=== PATIENT | male | born 1960 | race Caucasian/White ===

== ENCOUNTER 2020-05-14 08:59 | Day surgery (SDC) | payer BC ==
[~2020-05-14 08:59] MED LIST: Midazolam 1 MG/ML 2 ML SDV ONE; Propofol 200 MG/20 ML SDV ONE; Sodium Chloride 0.9% 10 ML Syringe FLUSH PRN
[2020-05-14] MEDS: Lactated Ringers 1,000 ML IV SCH (09:41)
--- NOTE | 2020-05-14 10:09 | PCM.HPR ---
H & P Addendum review - H & P Addendum Review Date of Original H & P: 04/16/20 Date Reviewed: 05/14/20 Time Reviewed: 10:09 Patient was Examined: No Changes
[2020-05-14] MEDS ORDERED: Propofol 200 MG/20 ML SDV ONE ×2 (10:12)
[2020-05-14] MEDS ORDERED: Midazolam 1 MG/ML 2 ML SDV ONE (10:12)
--- NOTE | 2020-05-14 10:43 | PCM.OPNOTE ---
- General Post-Op/Procedure Note Date of Surgery/Procedure: 05/14/20 Operative Procedure(s): Colonoscopy Findings: Sig tics Pre Op Diagnosis: Hx Polyps Post-Op Diagnosis: Same Anesthesia Technique: MAC Primary Surgeon: Ian Calle Anesthesia Provider: Lorrie Sommers Complications: None Condition: Good
--- NOTE | 2020-05-14 12:41 | OR ---
Date of Procedure: 05/14/2020 PREOPERATIVE DIAGNOSIS: History of colon polyps. POSTOPERATIVE DIAGNOSIS: Sigmoid diverticulosis. PROCEDURE: Colonoscopy. ANESTHESIA: IV sedation. PROCEDURE IN DETAIL: The patient was brought to the procedure room where he was placed on his left side and IV sedation was administered. Digital rectal exam was performed, which was normal. Colonoscope was inserted and advanced to the level of the cecum without difficulty. Cecal position was confirmed by identifying the appendiceal lumen and ileocecal valve. Prep was good and surfaces were well visualized. Upon withdrawing the scope, the ascending, transverse, and descending colon were normal in appearance. Sigmoid colon had a few diverticula present. Rectum was normal and retroflexion was normal. Air was removed and the scope withdrawn. Patient tolerated the procedure well and returned to recovery in stable condition. Recommend surveillance colonoscopy again in 5 years. KINGSTON HOLDEN MD /[id number]
[2020-05-14 14:23] VITALS: BP 110/93; PULSE 50
== END 2020-05-14 12:15 | disposition home or self-care (01) ==
LOC: LL.SDS 08:59
PROVIDERS: ATTEND Surgery
DX: Z12.11 Encounter for screening for malignant neoplasm of colon (principal); K57.30 Diverticulosis of large intestine without perforation or abscess without bleeding; M79.672 Pain in left foot; M79.671 Pain in right foot; G89.29 Other chronic pain; M54.2 Cervicalgia; Z86.010 Personal history of colon polyps; Z98.890 Other specified postprocedural states
CPT/HCPCS: J2250; J2704; J7120

== ENCOUNTER 2021-10-07 07:52 | Day surgery (SDC) | payer BC ==
[~2021-10-07 07:52] MED LIST changes: -Midazolam 1 MG/ML 2 ML SDV ONE; -Propofol 200 MG/20 ML SDV ONE
[2021-10-07] MEDS ORDERED: Midazolam 1 MG/ML 2 ML SDV ONE ×2 (08:31→09:03)
[2021-10-07] MEDS ORDERED: fentaNYL 250 MCG/5 ML SDV ONE ×2 (08:31→09:03)
[2021-10-07] MEDS ORDERED: Propofol 200 MG/20 ML SDV ONE ×2 (08:31→09:03)
[2021-10-07 08:35] LABS: ANION GAP 12.5 meq/L (7-15); CHLORIDE,CL 107 mmol/L (98-107); SODIUM,NA 143 mmol/L (136-145)
[2021-10-07] MEDS: Lactated Ringers 1,000 ML IV SCH (08:41)
[2021-10-07] MEDS: Albuterol 0.083% 2.5 MG/3 ML Neb Soln NEB ONE ×2 (08:54→10:55)
[2021-10-07] MEDS ORDERED: Neostigmine Methylsulfate 10 MG/10 ML MDV ONE (09:03)
[2021-10-07] MEDS ORDERED: ceFAZolin 1 GM Vial ONE (09:03)
[2021-10-07] MEDS ORDERED: Dexamethasone 10 MG/ML SDV ONE (09:03)
[2021-10-07] MEDS ORDERED: Succinylcholine 200 MG/10 ML MDV ONE (09:03)
[2021-10-07] MEDS ORDERED: ePHEDrine 50 MG/ML SDV ONE (09:03)
[2021-10-07] MEDS ORDERED: Ketorolac 30 MG/ML SDV ONE (09:03)
[2021-10-07] MEDS ORDERED: Ondansetron 4 MG/2 ML SDV ONE (09:03)
[2021-10-07] MEDS ORDERED: Glycopyrrolate 0.2 MG/ML SDV ONE (09:03)
[2021-10-07] MEDS ORDERED: Rocuronium 100 MG/10 ML MDV ONE (09:03)
--- NOTE | 2021-10-07 09:06 | PCM.PN ---
- General Info Date of Service: 10/07/21 - Review of Systems Systems Review Comment:: 61-year-old male here for cholecystectomy because of a mass in his gallbladder as well as gallbladder symptoms. Also requests removal of 3 skin tags. The skin tags are marked and procedure reviewed with the patient. Patient is medically stable to proceed today. I reviewed with him the proposed operative procedure and expectations as well as instructions. His recent history and physical is reviewed and no significant changes are noted. He agrees to proceed. - Patient Data Vitals - Most Recent: Last Vital Signs Temp 98.2 F 10/07/21 08:57 Pulse 61 10/07/21 08:57 Resp 20 10/07/21 08:57 BP 135/86 10/07/21 08:57 Pulse Ox 99 10/07/21 08:57 Weight - Most Recent: 90.265 kg Lab Results Last 24 Hours: Laboratory Results - last 24 hr 10/07/21 10/07/21 Range/Units 08:11 08:11 WBC 6.6 (4.0-10.2) K/uL RBC 5.67 H (4.33-5.41) M/uL Hgb 16.1 (13.1-16.8) g/dL Hct 46.8 (39.0-49.0) % MCV 82.5 L (84.0-98.0) fL MCH 28.4 (28.2-33.3) pg MCHC 34.4 (31.7-36.0) g/dL RDW 13.3 (11.2-14.1) % Plt Count 239 (150-350) K/uL Neut % (Auto) 61.8 (45.0-80.0) % Lymph % (Auto) 26.8 (10.0-50.0) % Gila % (Auto) 8.5 (2.0-14.0) % Eos % (Auto) 2.6 (0.0-5.0) % Baso % (Auto) 0.3 (0.0-2.0) % Neut # (Auto) 4.06 (1.40-7.00) K/uL Lymph # (Auto) 1.76 (0.50-3.50) K/uL Gila # (Auto) 0.56 (0.00-1.00) K/uL Eos # (Auto) 0.17 (0.00-0.50) K/uL Baso # (Auto) 0.02 (0.00-0.20) K/uL Sodium 143 (136-145) mmol/L Potassium 4.1 (3.5-5.1) mmol/L Chloride 107 (98-107) mmol/L Carbon Dioxide 23.5 (21.0-32.0) mmol/L Anion Gap 12.5 (7-15) meq/L BUN 27 H (7-18) mg/dL Creatinine 0.96 (0.51-1.17) mg/dL Est Cr Clr Drug Dosing 78.18 mL/min Estimated GFR (MDRD) > 60 mL/min Glucose 112 H (70-99) mg/dL Calcium 8.5 (8.5-10.1) mg/dL Med Orders - Current: Current Medications Lactated Ringer's (Ringers, Lactated) 1,000 mls @ 125 mls/hr IV ASDIRECTED CHRISTIN Last Admin: 10/07/21 08:41 Dose: 125 mls/hr Documented by: Sodium Chloride (Sodium Chloride 0.9% 10 Ml Syringe) 10 ml FLUSH ASDIRECTED PRN PRN Reason: Keep Vein Open Discontinued Medications Albuterol (Albuterol 0.083% 2.5 Mg/3 Ml Neb Soln) 2.5 mg NEB ONETIME ONE Stop: 10/07/21 08:47 Last Admin: 10/07/21 08:54 Dose: 2.5 mg Documented by: Fentanyl (Fentanyl 250 Mcg/5 Ml Sdv) Confirm Administered Dose 250 mcg .ROUTE .STK-MED ONE Stop: 10/07/21 08:32 Midazolam HCl (Midazolam 1 Mg/Ml 2 Ml Sdv) Confirm Administered Dose 2 mg .ROUTE .STK-MED ONE Stop: 10/07/21 08:32 Propofol (Propofol 200 Mg/20 Ml Sdv) Confirm Administered Dose 200 mg .ROUTE .STK-MED ONE Stop: 10/07/21 08:32 - Patient Data Lab Results Last 24 hrs: Laboratory Results - last 24 hr 10/07/21 10/07/21 Range/Units 08:11 08:11 WBC 6.6 (4.0-10.2) K/uL RBC 5.67 H (4.33-5.41) M/uL Hgb 16.1 (13.1-16.8) g/dL Hct 46.8 (39.0-49.0) % MCV 82.5 L (84.0-98.0) fL MCH 28.4 (28.2-33.3) pg MCHC 34.4 (31.7-36.0) g/dL RDW 13.3 (11.2-14.1) % Plt Count 239 (150-350) K/uL Neut % (Auto) 61.8 (45.0-80.0) % Lymph % (Auto) 26.8 (10.0-50.0) % Gila % (Auto) 8.5 (2.0-14.0) % Eos % (Auto) 2.6 (0.0-5.0) % Baso % (Auto) 0.3 (0.0-2.0) % Neut # (Auto) 4.06 (1.40-7.00) K/uL Lymph # (Auto) 1.76 (0.50-3.50) K/uL Gila # (Auto) 0.56 (0.00-1.00) K/uL Eos # (Auto) 0.17 (0.00-0.50) K/uL Baso # (Auto) 0.02 (0.00-0.20) K/uL Sodium 143 (136-145) mmol/L Potassium 4.1 (3.5-5.1) mmol/L Chloride 107 (98-107) mmol/L Carbon Dioxide 23.5 (21.0-32.0) mmol/L Anion Gap 12.5 (7-15) meq/L BUN 27 H (7-18) mg/dL Creatinine 0.96 (0.51-1.17) mg/dL Est Cr Clr Drug Dosing 78.18 mL/min Estimated GFR (MDRD) > 60 mL/min Glucose 112 H (70-99) mg/dL Calcium 8.5 (8.5-10.1) mg/dL Result Diagrams: 10/07/21 08:11 10/07/21 08:11 Sepsis Event Note - Focused Exam Vital Signs: Vital Signs Temp Pulse Resp BP Pulse Ox 10/07/21 08:57 98.2 F 61 20 135/86 99 - Problem List Review Problem List Initiated/Reviewed/Updated: Yes - Assessment Assessment:: Symptomatic gallbladder disease Skin tags - Plan Plan:: Cholecystectomy and removal of skin tags
[2021-10-07] MEDS: Bupivacaine 0.25%/EPINEPHrine 1:200,000 30 ML SDV INJECT ONE (09:20)
[2021-10-07] MEDS: Bacitracin Oint 1 GM U/D Packet TOP ONE (09:48)
--- NOTE | 2021-10-07 10:42 | PCM.OPNOTE ---
- General Post-Op/Procedure Note Date of Surgery/Procedure: 10/07/21 Operative Procedure(s): Laparoscopic cholecystectomy. Removal of multiple skin tags Findings: Gallbladder with normal-appearing surface and without evidence of acute inflammation. Normal appearing adjacent liver and other intra-abdominal structures. Benign skin tags x3 right groin and right thigh Pre Op Diagnosis: Symptomatic gallbladder disease. Skin tags Post-Op Diagnosis: Same Anesthesia Technique: General ET Tube Primary Surgeon: Samson Flowers Pathology: Gallbaldder EBL in mLs: 10 Complications: None Condition: Good
[2021-10-07] MEDS: Albuterol 0.083% 2.5 MG/3 ML Neb Soln ONE (10:52)
--- NOTE | 2021-10-07 12:25 | OR ---
Date of Procedure: 10/07/2021 PREOPERATIVE DIAGNOSES: 1. Symptomatic gallbladder disease. 2. Skin tags. OPERATION PERFORMED: Laparoscopic cholecystectomy and removal of multiple skin tags. INDICATIONS FOR SURGERY: This 61-year-old male has been having symptoms of abdominal pain. Workup identified an abnormal-appearing mass in the lower portion of the gallbladder of almost 1 cm in size. He comes for cholecystectomy. The patient also has 3 large benign skin tags, which he wishes removed. FINDINGS: Surface of the patient's gallbladder appears normal. It is somewhat densely adhered to the undersurface of the liver, but there is no sign of acute inflammation and there was also no indication of any invasion of the gallbladder into surrounding structures. The adjacent liver and other intraabdominal organs appear unremarkable as viewed laparoscopically. Three benign-appearing nonpigmented skin tags are noted, these are range in size from 7 to 15 mm. They are each pedunculated and are located in the right groin and right thigh. DESCRIPTION OF PROCEDURE: The patient was taken to the operating room. He was given general endotracheal anesthesia. The abdomen was sterilely prepped and draped and a supraumbilical stab wound incision was made. Through this, a Veress needle was inserted and pneumoperitoneum via this needle to a pressure of 15 mmHg was achieved with carbon dioxide. The Veress needle was then replaced with a 12 mm trocar into which the 10-mm 0-degree laparoscopic camera was inserted. Under direct visualization, 5 mm trocars were placed in the subxiphoid midline and in 2 areas of the right abdomen. All trocar sites were infiltrated with Marcaine prior to incision. Intraabdominal inspection was carried out and attention was turned to the gallbladder. It was secured with grasping forceps placed through the lateral trocars and retracted superiorly and anteriorly. Fatty tissue and peritoneal covering are cleared from the surface of the cystic duct and additional dissection identified the cystic artery densely adherent to the cystic duct. These 2 structures were . The cystic artery is doubly clipped and divided, and the triangle of Calot was cleared to clearly confirm the identity of the cystic duct. Once this had been performed, including its junction with the gallbladder, the cystic duct was milked and it was then doubly clipped and divided near the gallbladder with great care being used to avoid any injury or compromise to the common bile duct. The gallbladder was then dissected free from the undersurface of the liver using the hook cautery device. Once it was freed, it was extracted intact and without difficulty through the umbilical trocar site. Reinspection of the gallbladder bed was carried out and there was no sign of bleeding or any other complication. Trocars were removed under direct visualization and the pneumoperitoneum was evacuated. The fascia of the umbilical trocar site was closed with a figure-of- eight 0 Vicryl suture. Wounds were irrigated with Betadine and saline solution. Skin incisions approximated with interrupted 4-0 Vicryl in a subcuticular stitch. Benzoin and Steri-Strips were applied followed by antibiotic ointment and sterile dressings. Attention was turned to the 3 skin tags. These are then each prepped with Betadine, anesthetized with Marcaine, and then, each of the 3 tags in turn excised at the skin level using cautery. Tags were all completely removed in this manner, and each of the sites is covered with a sterile dressing. The patient was then awakened, extubated, and taken from the operating room in satisfactory condition. ESTIMATED BLOOD LOSS: 10 mL. COMPLICATIONS: None. PROGNOSIS: Good. KINGSTON Flowers MD /[id number]
[2021-10-07 14:46] VITALS: BP 128/82; PULSE 76
--- NOTE | 2021-10-11 12:42 | PCM.SN.2 ---
- Free Text/Narrative Note: Patient recieved 2GM of Ancef pre-operatively Muscle relaxant reversed with glycopyrulate 0.6mg and neostigmine 3mg
== END 2021-10-07 13:30 | disposition home or self-care (01) ==
LOC: LL.SDS 07:52
PROVIDERS: ATTEND Surgery
DX: K80.20 Calculus of gallbladder without cholecystitis without obstruction (principal); L91.8 Other hypertrophic disorders of the skin
CPT/HCPCS: 00790; 11200; 36415; 47562; 80048; 85025; 94640; J0330; J0690; J1100; J1885; J2250; J2405; J2704; J2710; J3010; J3490; J7120; J7613-GY

== ENCOUNTER 2025-04-27 01:16 | Emergency (ER) | payer BC ==
[2025-04-27] MEDS: Take Home: oxyCODONE HCl 5 MG Tab, 5 Tab Pack PO ONE (02:15)
== END 2025-04-27 02:22 | disposition home or self-care (01) ==
LOC: LL.ED 01:16
DX: S69.92XA Unspecified injury of left wrist, hand and finger(s), initial encounter (principal); W28.XXXA Contact with powered lawn mower, initial encounter; Z79.899 Other long term (current) drug therapy
CPT/HCPCS: 73110-LT; 99283; A9270-GY